=== PATIENT | female | born 1985 | race Hispanic/Latino ===

== ENCOUNTER 2020-06-01 13:04 | Emergency (ER) | payer SELFPAY ==
--- NOTE | 2020-06-01 15:22 | Event Note ---
ED Screening Note ED Screening Note: 35-year-old female with no significant past have a history presents emergency department suspicious of having a miscarriage states over the last 11 days she has been having having a heavy menses and over the last 3 days that the bleeding has increased to the point of heavy blood clots states she is gone through 4 boxes of tampons since the onset. Having pain to the abdomen and the hip area while no painful urination peer she reports no fever or sweats but did have some chills off and on. This initial assessment/diagnostic orders/clinical plan/treatment(s) is/are subject to change based on patients health status, clinical progression and re- assessment by fellow clinical providers in the ED. Further treatment and workup at subsequent clinical providers discretion. Patient/guardian urged not to elope from the ED as their condition may be serious if not clinically assessed and managed. Initial orders include:
[2020-06-01 15:45] LABS: Basophils # (Auto) 0.1 K/mm3 (0.0-0.1); Basophils % (Auto) 0.8 % (0.0-1.8); Eosinophils % (Auto) 0.5 % (0.0-4.3); Hematocrit 34.6 % (30.3-42.9); Hemoglobin 11.2 gm/dl (10.1-14.3); Lymphocytes # (Auto) 1.7 K/mm3 (1.2-5.4); Lymphocytes % (Auto) 22.2 % (13.4-35.0); Mean Corpuscular HGB Conc 33 % (30-34); Mean Corpuscular Volume 91 fl (79-97); Monocytes # (Auto) 0.5 K/mm3 (0.0-0.8); Monocytes % (Auto) 6.9 % (0.0-7.3); Platelet Count 237 K/mm3 (140-440); Red Cell Distribution Width 18.6 % (13.2-15.2)
[2020-06-01 15:53] LABS: INR 0.98 (0.87-1.13)
[2020-06-01 20:09] VITALS: BP 130/55
[2020-06-01 20:26] LABS: Bacteria,Urine 1+ /HPF (Negative); Bilirubin,Urine NEG (Negative); Blood,Urine LG (Negative); Color,Urine Red (Yellow); Mucus,Urine FEW /HPF; Urobilinogen,Urine < 2.0 mg/dL (<2.0)
[2020-06-01 20:28] LABS: RBC,Urine > 182.0 /HPF (0.0-6.0)
--- NOTE | 2020-06-01 22:52 | Ultrasound Report ---
TRANSABDOMINAL PELVIC ULTRASOUND INDICATION / CLINICAL INFORMATION: Pelvic pain and heavy bleeding. COMPARISON: None available. FINDINGS: The uterus measures 7.9 x 3.8 x 4.9 cm. The endometrial stripe measures 4.4 mm AP. There is a minimal amount of fluid in the endocervical canal. No fibroids are seen. The right ovary measures 2.4 x 2.0 x 2.7 cm and the left ovary 2.2 x 1.3 x 1.4 cm. There is normal bl ood flow to both ovaries on Doppler exam. A trace amount of free fluid is present in the cul-de-sac. The urinary bladder is collapsed and not well visualized. IMPRESSION: Minimal fluid in the endocervical canal is likely related to blood products. No other sig nificant abnormality. Signer Name: Bart Hernandez MD Signed: 06/01/2020 10:47 PM Workstation Name: [id number]
== END 2020-06-01 21:42 | disposition home or self-care (01) ==
LOC: ED 13:04
DX: O20.8 Other hemorrhage in early pregnancy (principal); Z53.21 Procedure and treatment not carried out due to patient leaving prior to being seen by health care provider; Z3A.00 Weeks of gestation of pregnancy not specified
CPT/HCPCS: 36415; 76856; 81001; 84702; 85025; 85610; 87086